=== PATIENT | male | born 1950 | race American Indian/Alaskan Native ===

== ENCOUNTER 2021-07-07 07:22 | Outpatient (CLI) | payer MEDICARE ==
--- NOTE | 2021-07-07 09:12 | Cat Scan Report ---
CT ABDOMEN AND PELVIS WITHOUT CONTRAST INDICATION / CLINICAL INFORMATION: MALIGNANT NEOPLASM OF PROSTATE. TECHNIQUE: Axial CT images were obtained through the abdomen and pelvis without IV contrast. Sagittal and peters l reformatted images. All CT scans at this location are performed using CT dose reduction for ALARA b y means of automated exposure control. COMPARISON: None available. FINDINGS: LOWER CHEST: No significant abnormality. LIVER: No significant abnormality. GALLBLADDER: No significant abnormality. BILE DUCTS: No significant abnormality. PANCREAS: No significant abnormality. SPLEEN: No significant abnormality. ADRENALS: No significant abnormality. RIGHT KIDNEY and URETER: No significant abnormality. LEFT KIDNEY and URETER: 3.1 cm cyst at the upper pole. 3.5 cm cyst at the lower pole. No obvious mass , nephrolithiasis or hydronephrosis. STOMACH and SMALL BOWEL: No significant abnormality. COLON: Minimal diverticulosis in the cecum and sigmoid regions. APPENDIX: No significant abnormality. PERITONEUM: No free fluid. No free air. No fluid collection. LYMPH NODES: There are a few suspicious lymph nodes. An enlarged right inguinal lymph node measures 1 .7 cm in short axis. An enlarged left inguinal lymph node measures 1.7 cm in short axis. There are alberto rderline to mildly enlarged solitary bilateral external iliac lymph nodes measuring 1.2 cm in short a xis. AORTA and ARTERIES: Moderate atherosclerotic plaques in the distal aorta and iliac arteries. There is mild dilatation of the left common iliac artery up to 2.5 cm in diameter. IVC and VEINS: No significant abnormality. URINARY BLADDER: No significant abnormality. REPRODUCTIVE ORGANS: No significant abnormality. The prostate gland measures 4.4 cm in transverse marva meter. ADDITIONAL FINDINGS: None. SKELETAL SYSTEM: Moderate degenerative changes are noted throughout the thoracic spine, lumbar spine and bilateral hips. No convincing or suspicious bony lesions. IMPRESSION: Borderline to enlarged lymph nodes are identified in both external iliac chains and inguinal chains. No visceral mass or bony lesions are detected. Left renal cysts. Signer Name: Santi Gonzalez Jr, MD Signed: 07/07/2021 9:07 AM Workstation Name: [id number]
--- NOTE | 2021-07-07 11:00 | Nuclear Medicine Report ---
NUCLEAR MEDICINE BONE SCAN, WHOLE BODY INDICATION: malignant neoplasm of prostate. TECHNIQUE: 26.1 mCi of Tc-99m MDP were injected IV. Whole body images were obtained. COMPARISON: Noncontrast CT abdomen and pelvis performed the same day. FINDINGS: Skeletal Structures: Fairly symmetric, likely degenerative uptake is present involving the shoulders , sternoclavicular joints, thoracic spine, bilateral knees and feet. Moderate urinary contamination i n the perineum is noted. Skeletal Lesions: None. Soft Tissues: Normal. Kidneys: Normal, symmetric activity. Additional Findings: None. IMPRESSION: No evidence for metastatic disease to the bones. Moderate degenerative uptake as described.. Signer Name: Santi Gonzalez Jr, MD Signed: 07/07/2021 10:55 AM Workstation Name: [id number]
== END 2021-07-07 07:23 | disposition home or self-care (01) ==
LOC: NM 07:22
PROVIDERS: ATTEND Urology
DX: C61 Malignant neoplasm of prostate (principal); N28.1 Cyst of kidney, acquired; K57.30 Diverticulosis of large intestine without perforation or abscess without bleeding; I70.0 Atherosclerosis of aorta; I70.8 Atherosclerosis of other arteries; R59.0 Localized enlarged lymph nodes; M47.817 Spondylosis without myelopathy or radiculopathy, lumbosacral region; M16.0 Bilateral primary osteoarthritis of hip
CPT/HCPCS: 74176; 78306; A9503